=== PATIENT | female | born 1990 | race Hispanic/Latino ===

== ENCOUNTER 2023-05-06 23:58 | Emergency (ER) | payer BC, OTHER ==
--- NOTE | 2023-05-07 00:11 | EDPHYS ---
Physician Documentation [facility] Name: Julia Maxwell Age: 33 yrs Sex: Female : 1990 Arrival Date: 05/06/2023 Time: 23:58 Bed Waiting Private MD: ED Physician Familia Carpenter HPI: 05/07 00:30 This 33 yrs old Female presents to ER via Ambulatory with complaints of kb Employee Exposure. 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 Came in to get prophylactic antibiotic.. Historical: - Allergies: 00:27 No Known Allergies; cm10 - Immunization history:: Adult Immunizations up to date. - Social history:: Smoking status: Patient denies any tobacco usage or history of. ROS: 00:30 Constitutional: Negative for fever, chills, and weight loss, kb 00:30 All other systems are negative, Exam: 00:30 Constitutional: This is a well developed, well nourished patient who is awake, alert, kb and in no acute distress. Head/Face: Normocephalic, atraumatic. ENT: Moist Mucous membranes Respiratory: Respirations even and unlabored. No increased work of breathing. Talking in full sentences Skin: Warm, dry with normal turgor. Normal color. MS/ Extremity: Pulses equal, no cyanosis. Neurovascular intact. Full, normal range of motion. Neuro: Awake and alert, GCS 15, oriented to person, place, time, and situation. Moves all extremities. Normal gait. Vital Signs: 00:26 BP 119 / 84; Pulse 78; Resp 18; Temp 98.3; Pulse Ox 100% on R/A; cm10 MDM: 00:05 Patient medically screened. kb 00:30 Data reviewed: vital signs, nurses notes. Counseling: I had a detailed discussion with kb the patient and/or guardian regarding the historical points, exam findings, and any diagnostic results supporting the discharge/admit diagnosis, the need for outpatient follow up, a family practitioner, to return to the emergency department if symptoms worsen or persist or if there are any questions or concerns that arise at home. Administered Medications: 00:30 Drug: Ciprofloxacin PO 1 grams PO once Route: PO; cm10 00:30 Follow up: Response: No adverse reaction cm10 Disposition: 06:00 Co-signature as Attending Physician, Familia Carpenter MD I agree with the assessment sp4 and plan of care. I reviewed the patient's care provided by Advanced Practice Provider \T\ agree w/ the diagnosis \T\ care plan. I personally saw the pt \T\ performed a substantive portion of the visit, incldng all aspects of the (History/Exam/Medical Decision Making). Disposition Summary: 05/07/23 00:11 Discharge Ordered Notes: Location: Home kb Condition: Stable kb Diagnosis - Exposure to bacterial meningitis kb Followup: kb - With: Emergency Department - When: As needed - Reason: Worsening of condition Followup: kb - With: Private Physician - When: 2 - 3 days - Reason: Recheck today's complaints, Continuance of care, Re-evaluation by your physician Forms: - Medication Reconciliation Form kb - Thank You Letter kb - Antibiotic Education kb - Prescription Opioid Use kb - Patient Portal Instructions kb - Leadership Thank You Letter kb Signatures: Alyssa Guerrier, JITNEY DRIVER-C JITNEY DRIVER-Familia Jenkins MD MD sp4 Mimi Sanchez RN RN cm10
--- NOTE | 2023-05-07 00:31 | ER ---
Nurse's Notes [facility] Name: Julia Maxwell Age: 33 yrs Sex: Female : 1990 Arrival Date: 05/06/2023 Time: 23:58 Bed Waiting Private MD: Diagnosis: Exposure to bacterial meningitis Presentation: 05/07 00:26 Chief complaint: Patient states: presenting to the ED due to exposure to bacterial cm10 meningitis from a patient in the ED. Coronavirus screen: Vaccine status: Patient reports receiving the 2nd dose of the covid vaccine. Client denies travel out of the [place] in the last 14 days. Ebola Screen: Patient denies travel to an Ebola-affected area in the 21 days before illness onset. No symptoms or risks identified at this time. Initial Sepsis Screen: Does the patient meet any 2 criteria? No. Patient's initial sepsis screen is negative. Does the patient have a suspected source of infection? No. Patient's initial sepsis screen is negative. Risk Assessment: Do you want to hurt yourself or someone else? Patient reports no desire to harm self or others. Onset of symptoms was May 07, 2023. 00:26 Method Of Arrival: Ambulatory cm10 00:26 Acuity: SILVER 4 cm10 Triage Assessment: 00:27 General: Appears in no apparent distress. comfortable, Behavior is calm, cooperative. cm10 Pain: Denies pain. Neuro: No deficits noted. Level of Consciousness is awake, alert, obeys commands, Oriented to person, place, time, situation. Historical: - Allergies: 00:27 No Known Allergies; cm10 - Immunization history:: Adult Immunizations up to date. - Social history:: Smoking status: Patient denies any tobacco usage or history of. Screenin:27 [facility] ED Fall Risk Assessment (Adult) History of falling in the last 3 months, cm10 including since admission. Abuse screen: Denies threats or abuse. Denies injuries from another. Nutritional screening: No deficits noted. Tuberculosis screening: No symptoms or risk factors identified. Vital Signs: 00:26 BP 119 / 84; Pulse 78; Resp 18; Temp 98.3; Pulse Ox 100% on R/A; cm10 ED Course: 00:05 Patient arrived in ED. jj6 00:05 Alyssa Guerrier FNP-C is PHCP. kb 00:05 Familia Carpenter MD is Attending Physician. kb 00:27 Triage completed. cm10 00:27 Arm band placed on Patient placed in waiting room. cm10 00:27 Patient has correct armband on for positive identification. Provided Education on: ER cm10 process and procedures. . 00:28 No provider procedures requiring assistance completed. Patient did not have IV access cm10 during this emergency room visit. Administered Medications: 00:30 Drug: Ciprofloxacin PO 1 grams PO once Route: PO; cm10 00:30 Follow up: Response: No adverse reaction cm10 Medication: 00:27 VIS not applicable for this client. cm10 Outcome: 00:11 Discharge ordered by . kb 00:30 Discharged to home ambulatory, cm10 00:30 Condition: good 00:30 Discharge instructions given to patient, Instructed on discharge instructions, follow up and referral plans. Demonstrated understanding of instructions, follow-up care, 00:31 Patient left the ED. cm10 Signatures: Alyssa Guerrier FNP-C FNP-Judie Servin jj6 Mimi Sanchez, RN RN cm10
[2023-05-07] MEDS ORDERED: CIPROFLOXACIN HCL 500 MG TAB ONE (00:43)
[2023-05-07 00:57] VITALS: BP 119/84; TEMP 98.3; O2SAT 100
== END 2023-05-07 00:31 | disposition home or self-care (01) ==
LOC: ER 23:58
DX: Z20.811 Contact with and (suspected) exposure to meningococcus (principal)
CPT/HCPCS: 99283